=== PATIENT | female | born 1970 | race Caucasian/White ===

== ENCOUNTER 2022-05-28 08:10 | Emergency (ER) | payer OTHER ==
[~2022-05-28] VITALS: Ht 152.4 cm; Wt 74.8 kg
== END 2022-05-28 09:14 | disposition home or self-care (01) ==
LOC: ER 08:10
DX: T78.40XA Allergy, unspecified, initial encounter (principal); M79.7 Fibromyalgia; Z91.013 Allergy to seafood; Z88.6 Allergy status to analgesic agent; Z88.2 Allergy status to sulfonamides; E78.00 Pure hypercholesterolemia, unspecified; Z98.890 Other specified postprocedural states